=== PATIENT | male | born 1940 | race American Indian/Alaskan Native ===

== ENCOUNTER 2022-06-16 17:37 | Emergency (ER) | payer MEDICARE ==
--- NOTE | 2022-06-16 19:28 | Emergency Department Report ---
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 Patient says that the doctor took her trach out early and late afternoon however called long term and reports that trach fell out. Patient in no distress. No reported fevers chills or cough. -: Sudden Severity: mild Pain Scale: 0 Improves With: nothing Worsens With: nothing Known History Of: COPD, congestive heart failure Associated Symptoms: denies other symptoms Treatments Prior to Arrival: none - Related Data Allergies Allergy/AdvReac Type Severity Reaction Status Date / Time No Known Allergies Allergy Unverified 06/16/22 17:59 ED Review of Systems ROS: Stated complaint: TRACHEOSTOMY DISLODGMENT Other details as noted in HPI Constitutional: denies: chills, fever Eyes: denies: eye pain, eye discharge, vision change ENT: denies: ear pain, throat pain Respiratory: see HPI. denies: cough, shortness of breath, SOB with exertion, SOB at rest, stridor, wheezing Cardiovascular: denies: chest pain, palpitations Endocrine: no symptoms reported Gastrointestinal: denies: abdominal pain, nausea, diarrhea Genitourinary: denies: urgency, dysuria Musculoskeletal: denies: back pain, joint swelling, arthralgia Skin: denies: rash, lesions Neurological: denies: headache, weakness, paresthesias Psychiatric: denies: anxiety, depression Hematological/Lymphatic: denies: easy bleeding, easy bruising ED Past Medical Hx - Past Medical History Hx Hypertension: Yes Hx Congestive Heart Failure: Yes Hx Diabetes: Yes Hx Deep Vein Thrombosis: Yes ED Physical Exam - General Limitations: No Limitations General appearance: alert, in no apparent distress - Head Head exam: Present: atraumatic, normocephalic - Eye Eye exam: Present: normal appearance, PERRL - ENT ENT exam: Present: mucous membranes moist, other (Trach site clean no obstruction. Trach site extremely small) - Neck Neck exam: Absent: tenderness - Respiratory Respiratory exam: Present: normal lung sounds bilaterally. Absent: respiratory distress, wheezes, chest wall tenderness, accessory muscle use - Cardiovascular Cardiovascular Exam: Present: regular rate, normal rhythm. Absent: systolic murmur, diastolic murmur, rubs, gallop - GI/Abdominal GI/Abdominal exam: Present: soft, normal bowel sounds - Rectal Rectal exam: Present: deferred - Extremities Exam Extremities exam: Present: normal inspection - Back Exam Back exam: Present: normal inspection - Neurological Exam Neurological exam: Present: alert, oriented X3, CN II-XII intact - Psychiatric Psychiatric exam: Present: normal affect, normal mood - Skin Skin exam: Present: warm, dry, intact, normal color. Absent: rash ED Course Vital Signs 06/16/22 06/16/22 17:49 18:01 Temperature 98.2 F Pulse Rate 89 90 Respiratory 18 18 Rate Blood Pressure 103/72 126/60 [Left] O2 Sat by Pulse 96 99 Oximetry ED Medical Decision Making - Medical Decision Making Patient observed in emergency for approximately 4 hours. Patient remained 94 to 95% on room air. Patient has no respiratory distress. Patient is talking and laughing. Critical care attestation.: If time is entered above; I have spent that time in minutes in the direct care of this critically ill patient, excluding procedure time. ED Disposition Clinical Impression: Tracheostomy complication, unspecified Disposition: 03 ASSISTED FACILITY Is pt being admited?: No Does the pt Need Aspirin: No Condition: Stable
[2022-06-16 23:41] VITALS: BP 131/89
== END 2022-06-16 23:41 ==
LOC: ED 17:37
DX: J95.00 Unspecified tracheostomy complication (principal); I11.0 Hypertensive heart disease with heart failure; I50.9 Heart failure, unspecified; E11.9 Type 2 diabetes mellitus without complications; Z86.718 Personal history of other venous thrombosis and embolism
CPT/HCPCS: 99283